=== PATIENT | female | born 1955 | race Caucasian/White ===

== ENCOUNTER 2024-08-24 08:13 | Day surgery (SDC) | payer OTHER ==
[~2024-08-24] VITALS: Ht 149.9 cm; Wt 76.9 kg
[~2024-08-24 08:13] MED LIST: ALBU90OI6 INH; ARIP10; CITA20; IBUP800 PO; Lactated Ringer's 1,000 ML IV ONE; Norco 5-325 Ta1 EACH PO; OMEP20ER; propofoL 50 ML IV ONE
[2024-08-24] MEDS ORDERED: ABILIFY MYCITE2 M2 (09:04)
[2024-08-24] MEDS ORDERED: OMEP20ER (09:04)
[2024-08-24] MEDS ORDERED: BREZTRI AEROS10.7 GM (09:05)
[2024-08-24] MEDS ORDERED: ROSUVASTATIN CA10 MG (09:05)
[2024-08-24] MEDS ORDERED: FENOFIBRATE40 MG (09:05)
[2024-08-24] MEDS ORDERED: HYDROCODONE-AC1 EA19 (09:06)
[2024-08-24] MEDS ORDERED: Doxycycline150 MG (09:09)
[2024-08-24] MEDS ORDERED: Lactated Ringer's 1,000 ML IV ONE (09:40)
--- NOTE | 2024-08-24 11:08 | NUR ---
08/24/24 1108 CAMILA SIMS SCRIPT SENT TO [facility]:CARAFATE END NOTE
[2024-08-24 14:17] VITALS: BP 128/73
== END 2024-08-24 11:14 | disposition home or self-care (01) ==
LOC: ORSCSDS 08:13
PROVIDERS: Surgery
PROC: 0DB58ZX Excision of Esophagus, Via Natural or Artificial Opening Endoscopic, Diagnostic (ICD-10-PCS; principal; 2024-08-24 09:30)
PROC: 0DBM8ZX Excision of Descending Colon, Via Natural or Artificial Opening Endoscopic, Diagnostic (ICD-10-PCS; principal; 2024-08-24 09:30)
PROC: 0DB48ZX Excision of Esophagogastric Junction, Via Natural or Artificial Opening Endoscopic, Diagnostic (ICD-10-PCS; principal; 2024-08-24 09:30)
PROC: 0DB68ZX Excision of Stomach, Via Natural or Artificial Opening Endoscopic, Diagnostic (ICD-10-PCS; principal; 2024-08-24 09:30)
DX: K22.70 Barrett's esophagus without dysplasia (principal); D12.4 Benign neoplasm of descending colon; K44.9 Diaphragmatic hernia without obstruction or gangrene; Z12.11 Encounter for screening for malignant neoplasm of colon; Z86.0100 Personal history of colon polyps, unspecified; K21.00 Gastro-esophageal reflux disease with esophagitis, without bleeding; J44.9 Chronic obstructive pulmonary disease, unspecified; F32.A Depression, unspecified; E78.2 Mixed hyperlipidemia; F43.10 Post-traumatic stress disorder, unspecified; G47.33 Obstructive sleep apnea (adult) (pediatric); Z79.899 Other long term (current) drug therapy; Z87.891 Personal history of nicotine dependence
CPT/HCPCS: 88305; 88342; J2704; J7120